=== PATIENT | male | born 1955 | race Caucasian/White ===

== ENCOUNTER 2020-03-31 09:29 | Inpatient (IN) | payer SELFPAY ==
[~2020-03-31] VITALS: Ht 177.8 cm; Wt 76.6 kg
[2020-03-31] MEDS ORDERED: DexAMETHasone SOD PHOS 10MG/1ML VIAL INJ IV ONE (11:00)
[2020-03-31] MEDS ORDERED: ALBUTEROL SULF 2.5 MG/0.5ML(0.5%) NEB SOLN HHN ONE (11:00)
[2020-03-31] MEDS ORDERED: IPRATROPIUM BROM 0.5 MG/2.5ML INH SOL HHN ONE (11:00)
[2020-03-31] MEDS ORDERED: hydrALAZINE HCL 20 MG/ML VL IV ONE (11:15)
[2020-03-31 11:25] LABS: Albumin 3.3 g/dL (3.4-5.0); Calcium 8.9 mg/dL (8.5-10.1); Potassium 4.1 mmol/L (3.5-5.1)
[2020-03-31 11:28] LABS: BUN/Creatinine Ratio 20.4; Bilirubin, Total 0.7 mg/dL (0.2-1.0)
[2020-03-31] MEDS ORDERED: NIFEdipine 10 MG CAP PO ONE ×2 (11:45→12:30)
[2020-03-31 12:27] LABS: Basophils # (auto) 0.1 10 ^3/uL (0-0.2); Basophils % (auto) 0.8 % (0.0-2.0); Eosinophils # (auto) 0.2 10 ^3/uL (0-0.8); Hematocrit 42.2 % (41.0-53.0); Hemoglobin 14.4 g/dL (13.5-17.5); Lymphocytes # (auto) 1.3 10 ^3/uL (0.4-5.4); Mean Corpuscular Hemoglobin 33.5 pg (28.0-32.0); Mean Corpuscular Hgb Conc. 34.2 g/dL (32.0-36.0); Mean Corpuscular Volume 98.1 fL (80.0-100.0); Monocytes # (auto) 0.8 10 ^3/uL (0-1.3); Monocytes % (auto) 9.9 % (0.0-12.0); Neutrophils # (auto) 5.5 10 ^3/uL (1.6-8.6); Neutrophils % (auto) 70.3 % (37.0-80.0); Platelet Count (auto) 177 10^3/uL (140-450); Red Cell Distribution Width 15.7 % (11.8-14.3); White Blood Cell 7.8 10^3/uL (4.4-10.8)
[2020-03-31] MEDS ORDERED: NITROGLYCERIN 0.4MG/HR TOPICAL PATCH TD ONE (13:15)
[2020-03-31] MEDS ORDERED: ENALAPRILAT 1.25 MG/ML-1ML VIAL IV ONE (13:15)
[2020-03-31] MEDS ORDERED: SODIUM CHLORIDE 0.9% 1,000 ML IV SCH (14:41)
[2020-03-31] MEDS ORDERED: MORPHINE SULF INJ 2 MG/ML SYRINGE 1ML IV PRN ×2 (14:45→15:00)
[2020-03-31] MEDS ORDERED: NITROGLYCERIN 0.4 MG SL TAB SL PRN (14:45)
[2020-03-31 14:50] VITALS: BP 136/84
[2020-03-31] MEDS ORDERED: LORazepam 0.5 MG TAB PO PRN (15:00)
[2020-03-31] MEDS ORDERED: ZINC SULFATE 220mg CAP or TAB PO SCH (15:59)
[2020-03-31] MEDS ORDERED: ASCORBIC ACID 1,000 MG TAB PO SCH (15:59)
[2020-03-31] MEDS ORDERED: CHOLECALCIFEROL (VITD3) 2,000 UNIT CAP PO SCH (16:00)
[2020-03-31 16:58] LABS: CRP High Sensitivity 3.37 mg/dL (< 0.3)
[2020-03-31] MEDS: ENOXAPARIN SOD 40 MG/0.4 ML SYRINGE SC SCH (17:02)
[2020-03-31] MEDS: levoFLOXacin 750MG 150 ML IV SCH (17:02)
--- NOTE | 2020-03-31 17:40 | NUR ---
Telemetry admit from ER JON ADLER admitted to Telemetry unit after SBAR received. Patient oriented to MARISELA DAIGLE RN primary RN, unit, room, bed, and unit policies regarding patient care and visiting hours. Patient awaiting tele box to be delivered. Patient placed on bedside 4L oxygen, weighed by bedscale and encouraged to call if they need something. All questions and concerns addressed, patient verbalized understanding.
[2020-03-31] MEDS ORDERED: PIPERACILLIN-TAZOB 2.25GM 50 ML IV SCH (18:00)
[2020-03-31 18:20] VITALS: BP 154/93
--- NOTE | 2020-03-31 18:20 | NUR ---
Hospitalist paged Hospitalist paged regarding patients BP 155/93 upon admission to the Tele floor. No PRN anti-hypertensives available on EMAR. Awaiting call back.
[2020-03-31] MEDS ORDERED: hydrALAZINE HCL 20 MG/ML VL IV PRN (18:45)
--- NOTE | 2020-03-31 18:45 | NUR ---
paged back. New orders received at this time for elevated B/P. Please check EMAR for more information. Will implement orders and continue care.
--- NOTE | 2020-03-31 18:47 | NUR ---
B/P reassessment Reassessed BP at this time is currently 148/90. Will hold off on giving BP medication per protocol.
[2020-03-31] MEDS: PIPERACILLIN-TAZOB 3.375GM 100 ML IV SCH ×2 (19:20→23:35)
--- NOTE | 2020-03-31 19:35 | NUR ---
OPENING NOTE Received report from day shift RN. Patient is A&O X's 4 with no s/s of distress and reports no pain or SOB at this time. Patient is currently receiving 3L O2 via [place] Respirations are even and unlabored. Patient has a cough that patient describes as mostly dry but sometimes coughs up thin excretions. Patient reports feeling better at this time. Educated patient on POC and to use call light when in need of any assistance/experiences worsening of symptoms. Patient verbalized understanding. Bed is in lowest/locked position with side rails up X's 2 and call light is within reach of patient. Will continue care. Urine sample to be obtained. patient aware.
--- NOTE | 2020-03-31 20:48 | NUR ---
in house covid swab collected and walked down to lab by resource RN.
--- NOTE | 2020-03-31 21:12 | NUR ---
Respiratory note: MDI HELD AT THIS TIME WAITING FOR COVID RESULTS, NO DISTRESS NOTED
[2020-03-31] MEDS: ACETAMINOPHEN 500 MG TAB PO PRN (21:52)
--- NOTE | 2020-03-31 21:56 | NUR ---
URINE SAMPLE OBTAINED sent to lab via [employer] system.
[2020-03-31 22:00] VITALS: BP 156/98
[2020-03-31] MEDS ORDERED: BUDESONIDE (INHALATION) 180 MCG IH IN SCH (22:00)
[2020-03-31] MEDS ORDERED: ALBUTEROL SULF HFA 90MCG INH 200DOSE IN SCH (22:00)
--- NOTE | 2020-03-31 22:00 | NUR ---
[facility] HOSPITALIST BP reassessed at 154/93 HR 85-90 PRN blood pressure medication is not available.
[2020-03-31 22:28] LABS: Urine Bacteria NONE SEEN /hpf (None Seen); Urine Blood Negative /uL (Negative); Urine WBC 2 /hpf (0 - 3)
[2020-03-31] MEDS ORDERED: LABETALOL HCL 5 MG/ML 4ML SYRINGE IV ONE (22:45)
--- NOTE | 2020-03-31 22:48 | NUR ---
HOSPITALIST CALLED BACK Medication ordered for high blood pressure. Will carry out order.
[2020-03-31 23:12] LABS: Lactic Acid w/Reflex 2.3 mmol/L (0.4-2.0)
[2020-03-31 23:42] VITALS: BP 137/91
--- NOTE | 2020-03-31 23:43 | NUR ---
BLOOD PRESSURE REASSESSMENT BP 137/91 HR 82 patient reports no pain/sob. Will continue care
[2020-04-01] VITALS (7 sets, daily range): BP systolic 147–170; BP diastolic 95–115
--- NOTE | 2020-04-01 02:12 | NUR ---
RUN OF VTACH 6 BEAT OF VTACH 6 beat of VTACH. Assessed patient. Patient asymptomatic. No s/s of distress and reports no chest pain/sob or any other complaints. Patient's HR remaining about 80's SR. EKG performed and placed in chart. Will continue care.
--- NOTE | 2020-04-01 02:40 | NUR ---
ENDORSED CARE Patient now to room 273A with URBANO Kee. Gave full report to Vidhya with all questions answered. Patient left unit via wheelchair, transported by URBANO Gann. No s/s of distress noted. Respirations even and unlabored. Patient left with all belongings.
--- NOTE | 2020-04-01 02:41 | NUR ---
RECEIVED PATIENT Received patient from URBANO Wood after SBAR given. Patient transferred via wheelchair to Room 273-A. No distress noted at time of arrival. POC discussed and patient verbalizes understanding. Bed is in low locked position with side rails up x2. Call light is within reach and patient ecouraged to call for assistance when needed. Will continue to monitor for changes PRN.
--- NOTE | 2020-04-01 02:51 | NUR ---
COPYIST Spoke with Benito ekg monitor. requested new Tele box due to transfer to [facility]. Tele box #7 sent to monitor techs via bullet system.
--- NOTE | 2020-04-01 03:04 | NUR ---
PATIENT IS NOW ON CONTINUOUS TELEMETRY MONITORING VIA TELEMETRY BOX #[id number]. CURRENTLY IN NORMAL SINUS RHYTHM AT 88.
--- NOTE | 2020-04-01 04:08 | NUR ---
BLOOD PRESSURE Blood pressure is 164/77, HR 88. Patient has an order for Apresoline 10mg PRN Q6 for SBP>150, which is currently unavailable. Hospitalist paged to notify.
--- NOTE | 2020-04-01 05:11 | NUR ---
BLOOD PRESSURE Blood pressure reassessed and is 158/95, HR 93. Received call from Hospitalist Sandoavl Blackwell NP. New orders received, read back and verified. Will follow through.
[2020-04-01] MEDS ORDERED: LABETALOL HCL 5 MG/ML 4ML SYRINGE IV ONE (05:15)
[2020-04-01] MEDS: PIPERACILLIN-TAZOB 3.375GM 100 ML IV SCH ×4 (05:41→23:50)
[2020-04-01 07:44] LABS: Basophils # (auto) 0 10 ^3/uL (0-0.2); Basophils % (auto) 0.6 % (0.0-2.0); Eosinophils # (auto) 0 10 ^3/uL (0-0.8); Eosinophils % (auto) 0.1 % (0.0-7.0); Hematocrit 41.7 % (41.0-53.0); Hemoglobin 13.5 g/dL (13.5-17.5); Lymphocytes # (auto) 0.9 10 ^3/uL (0.4-5.4); Lymphocytes % (auto) 10.8 % (10.0-50.0); Mean Corpuscular Hemoglobin 31.7 pg (28.0-32.0); Mean Corpuscular Hgb Conc. 32.5 g/dL (32.0-36.0); Mean Corpuscular Volume 97.6 fL (80.0-100.0); Monocytes # (auto) 0.8 10 ^3/uL (0-1.3); Monocytes % (auto) 9.3 % (0.0-12.0); Neutrophils # (auto) 6.4 10 ^3/uL (1.6-8.6); Neutrophils % (auto) 79.2 % (37.0-80.0); Platelet Count (auto) 168 10^3/uL (140-450); Red Blood Cells 4.27 10^6/uL (4.5-5.90); Red Cell Distribution Width 15.9 % (11.8-14.3); White Blood Cell 8.1 10^3/uL (4.4-10.8)
[2020-04-01 07:59] LABS: Calcium 8.4 mg/dL (8.5-10.1); Potassium 4.1 mmol/L (3.5-5.1)
[2020-04-01 08:06] LABS: BUN/Creatinine Ratio 23.4; Bilirubin, Total 0.7 mg/dL (0.2-1.0); Total Protein 6.6 g/dL (6.4-8.2)
--- NOTE | 2020-04-01 08:30 | NUR ---
Patient resting quietly in bed. Patient stable.
[2020-04-01] MEDS: levoFLOXacin 750MG 150 ML IV SCH (09:34)
[2020-04-01] MEDS: ENOXAPARIN SOD 40 MG/0.4 ML SYRINGE SC SCH (09:34)
--- NOTE | 2020-04-01 09:35 | NUR ---
Patient resting comfortably in bed with no distress noted. Denies any pain. Scheduled IV abx and subq medications given per order. Patient stable at this time.
[2020-04-01] MEDS ORDERED: levoFLOXacin 500MG 100 ML IV SCH (10:00)
[2020-04-01] MEDS ORDERED: FUROSEMIDE 40 MG/4 ML VIAL IV ONE (10:15)
[2020-04-01] MEDS ORDERED: ASPirin 81 mg TAB PO ONE (10:15)
[2020-04-01] MEDS ORDERED: METOPROLOL TARTRATE 25 MG TAB PO ONE (10:15)
[2020-04-01] MEDS ORDERED: NICOTINE 21MG/24 HR TOPICAL PATCH TD ONE (10:30)
[2020-04-01 10:52] LABS: Cholesterol 175 mg/dL (< 200); HDL Cholesterol 38 mg/dL (40-59); LDL Cholesterol 128 mg/dL (< 100); Triglycerides 100 mg/dL (< 150)
--- NOTE | 2020-04-01 11:00 | NUR ---
Ordered medications given. Patient stable at this time.
--- NOTE | 2020-04-01 11:05 | NUR ---
Patient stable with Dr. Celeste at bedside.
[2020-04-01] MEDS: DOCUSATE CALCIUM 240 MG CAP PO SCH (11:54)
--- NOTE | 2020-04-01 11:55 | NUR ---
Patient sitting on side of bed; denies any pain. Scheduled IV abx and po medications given per order. Patient stable at this time.
--- NOTE | 2020-04-01 14:33 | NUR ---
Patient sitting on side of bed with no respiratory distress noted. Patient stable at this time.
--- NOTE | 2020-04-01 16:40 | NUR ---
Patient resting quietly and comfortably in bed with no distress noted. Patient stable.
[2020-04-01] MEDS: FUROSEMIDE 40 MG/4 ML VIAL IV SCH (17:42)
--- NOTE | 2020-04-01 17:45 | NUR ---
Scheduled IV abx and IVP medications given per order. Patient sitting on side of bed; eating dinner. Patient stable at this time.
--- NOTE | 2020-04-01 18:29 | NUR ---
Patient sitting on side of bed with no complaint of pain or discomfort. Patient stable throughout shift.
--- NOTE | 2020-04-01 19:35 | NUR ---
Opening Shift Note Assumed care of patient, awake and alert. No S/S of distress/SOB or pain. PIV in left AC is intact and patent. Currently infusing Zosyn as ordered. Instructed on POC and to call for assist PRN, will continue to monitor for changes Q1hr and PRN.
[2020-04-01] MEDS ORDERED: METOPROLOL TARTRATE 25 MG TAB PO SCH (22:00)
[2020-04-01] MEDS: ACETAMINOPHEN 500 MG TAB PO PRN (22:45)
[2020-04-02] VITALS (7 sets, daily range): BP systolic 134–153; BP diastolic 87–98
[2020-04-02] MEDS: FUROSEMIDE 40 MG/4 ML VIAL IV SCH ×2 (05:38→19:23)
[2020-04-02] MEDS: PIPERACILLIN-TAZOB 3.375GM 100 ML IV SCH (05:38)
[2020-04-02] MEDS: NICOTINE 21MG/24 HR TOPICAL PATCH TD SCH (10:00)
[2020-04-02] MEDS ORDERED: SACUBITRIL-VALSARTAN 24mg/26mg TAB PO ONE (10:30)
--- NOTE | 2020-04-02 10:54 | NUR ---
I faxed life vest order to [facility].
[2020-04-02] MEDS: levoFLOXacin 750MG 150 ML IV SCH (11:05)
[2020-04-02] MEDS: ASPirin 81 mg TAB PO SCH (11:05)
[2020-04-02] MEDS: METOPROLOL TARTRATE 50 MG TAB PO SCH ×2 (11:06→21:55)
[2020-04-02] MEDS: DOCUSATE CALCIUM 240 MG CAP PO SCH (11:08)
[2020-04-02] MEDS: ENOXAPARIN SOD 40 MG/0.4 ML SYRINGE SC SCH (11:08)
--- NOTE | 2020-04-02 19:20 | NUR ---
Opening Shift Note Assumed care of patient, awake, alert, and oriented x 4. No S/S of respiratory distress and/or pain noted or reported. Bed in lowest locked position, side rails x 2 up, call light is within reach. Instructed on POC and to call for assistance as needed. Will continue to monitor for changes Q1hr and PRN.
[2020-04-02] MEDS: ATORVASTATIN 20 MG TAB PO SCH (21:54)
[2020-04-02] MEDS: SACUBITRIL-VALSARTAN 24mg/26mg TAB PO SCH (21:54)
[2020-04-03 05:00] VITALS: BP 128/89
[2020-04-03] MEDS: FUROSEMIDE 40 MG/4 ML VIAL IV SCH ×2 (05:36→18:15)
--- NOTE | 2020-04-03 05:38 | NUR ---
Pre OP Pre Op bath with CHG given to the patient. Tolerated well.
[2020-04-03 06:50] LABS: Basophils # (auto) 0.1 10 ^3/uL (0-0.2); Basophils % (auto) 1.3 % (0.0-2.0); Eosinophils # (auto) 0.4 10 ^3/uL (0-0.8); Eosinophils % (auto) 4.3 % (0.0-7.0); Hematocrit 52.4 % (41.0-53.0); Hemoglobin 17.6 g/dL (13.5-17.5); Lymphocytes % (auto) 22.7 % (10.0-50.0); Mean Corpuscular Hemoglobin 32.2 pg (28.0-32.0); Mean Corpuscular Hgb Conc. 33.6 g/dL (32.0-36.0); Mean Corpuscular Volume 95.8 fL (80.0-100.0); Monocytes % (auto) 11.1 % (0.0-12.0); Neutrophils # (auto) 5.3 10 ^3/uL (1.6-8.6); Neutrophils % (auto) 60.6 % (37.0-80.0); Nucleated Red Blood Cells % 0.2 %; Platelet Count (auto) 212 10^3/uL (140-450); Red Blood Cells 5.48 10^6/uL (4.5-5.90); Red Cell Distribution Width 15.2 % (11.8-14.3); White Blood Cell 8.8 10^3/uL (4.4-10.8)
[2020-04-03 07:07] LABS: Calcium 9.1 mg/dL (8.5-10.1); Potassium 3.7 mmol/L (3.5-5.1)
[2020-04-03 07:17] LABS: INR 1.04 (0.9-1.15); Partial Thromboplastin Time 28.8 sec (23.0-31.2)
[2020-04-03] MEDS: SACUBITRIL-VALSARTAN 24mg/26mg TAB PO SCH ×2 (08:10→22:09)
[2020-04-03] MEDS: ASPirin 81 mg TAB PO SCH (08:10)
[2020-04-03] MEDS: levoFLOXacin 750MG 150 ML IV SCH (08:10)
[2020-04-03] MEDS: DOCUSATE CALCIUM 240 MG CAP PO SCH (08:11)
[2020-04-03] MEDS: METOPROLOL TARTRATE 50 MG TAB PO SCH ×2 (08:11→22:10)
[2020-04-03 08:48] VITALS: BP 141/95
[2020-04-03] MEDS: ENOXAPARIN SOD 40 MG/0.4 ML SYRINGE SC SCH (10:00)
[2020-04-03] MEDS ORDERED: ANGIOMAX 250 MG VIAL IV ONE (10:21)
[2020-04-03] MEDS ORDERED: fentaNYL CITRATE 100 MCG/2 ML VL ONE (10:21)
[2020-04-03] MEDS ORDERED: VERAPAMIL 2.5MG/ML INJ 2ML VIAL IV ONE (10:21)
[2020-04-03] MEDS ORDERED: HEPARIN SODIUM (PORCINE) 5000 UNITS/ML 1ML VIAL ONE (10:21)
[2020-04-03] MEDS ORDERED: LIDOCAINE 2%HCL (LOCAL ANESTH.) INJ 20ML MDV ONE (10:22)
[2020-04-03] MEDS ORDERED: MIDAZOLAM HCL 1MG/1ML-2 ML VIAL ONE (10:22)
[2020-04-03] MEDS ORDERED: IODIXANOL 320MG/ML 100ML BTL IV ONE (10:22)
[2020-04-03] MEDS ORDERED: SODIUM CHL 0.9% 0 ML ONE (10:22)
[2020-04-03] MEDS: NICOTINE 21MG/24 HR TOPICAL PATCH TD SCH (11:00)
--- NOTE | 2020-04-03 12:43 | NUR ---
Nutrition Assessment Notes Please refer to link for full assessment notes. Est Energy needs: 7151-1106 kcals (23-25 kcal/kgBW) Est Protein needs: 64-79 gms/day (0.8-1.0 gm/kgBW) Will continue to monitor and reassess prn. Addendum: 04/03/20 at [address] Amended: Links added.
--- NOTE | 2020-04-03 14:32 | NUR ---
assessment Patient is a 64 year old male who is alert and oriented. Patients cognitive abilities are intact. Prior to admission patient lived home alone and functioned independently. Patient informed me he is able to care for his own ADLs. Per patient he will return home to his prior living arrangements post discharge and family will transport him home. Patient informed me he has a cane for home use. Patient has no PCP. Patient feels safe returning home on discharge. Patient has no insurance. Patient has been assessed by Suresh Johnson of [facility]. Patient is over income. Patients monthly income is 2,800. I have provided patient with resources for [facility], Dr. Alcala, and [facility] urgent care for follow up visits. I have provided patient with a prescription card from community assistance program. I informed patient I will continue to monitor and follow up as appropriate for any post discharge needs. I informed patient he has a right to speak to a marriage and family social worker regarding all care. I informed patient he has a right to participate in any and all discharge planning. Patient does not have a POA and advanced directive. I have offered patient information on POA and advanced directives. I informed the patient the advantages and benefits of having an Advanced Directive. Patient verbalized understanding and agreed to discharge plan. Addendum: 04/03/20 at 1435 by Brittney FERREIRA Amended: Links added.
[2020-04-03 17:13] VITALS: BP 121/70
--- NOTE | 2020-04-03 19:13 | NUR ---
Opening Shift Note Assumed care of patient, awake, alert, and oriented x 4. No S/S of respiratory distress and/or pain noted or reported. Respirations are regular and non-labored. Patient is on RA. Bed in lowest locked position, side rails x 2 up, call light is within reach. Instructed on POC and to call for assistance as needed. Will continue to monitor for changes Q1hr and PRN.
[2020-04-03 20:00] VITALS: BP 119/83
[2020-04-03 22:00] VITALS: BP 119/83
[2020-04-03] MEDS: ATORVASTATIN 20 MG TAB PO SCH (22:10)
[2020-04-04 05:00] VITALS: BP 151/99
[2020-04-04 05:50] LABS: Basophils # (auto) 0.1 10 ^3/uL (0-0.2); Basophils % (auto) 1.2 % (0.0-2.0); Eosinophils # (auto) 0.3 10 ^3/uL (0-0.8); Lymphocytes # (auto) 1.6 10 ^3/uL (0.4-5.4); Mean Corpuscular Volume 95.3 fL (80.0-100.0); Monocytes # (auto) 1.2 10 ^3/uL (0-1.3); Neutrophils # (auto) 6.1 10 ^3/uL (1.6-8.6); Red Cell Distribution Width 15.5 % (11.8-14.3)
[2020-04-04 05:52] LABS: Eosinophils % (auto) 3.3 % (0.0-7.0); Hematocrit 53.6 % (41.0-53.0); Hemoglobin 18.3 g/dL (13.5-17.5); Lymphocytes % (auto) 17.4 % (10.0-50.0); Mean Corpuscular Hemoglobin 32.5 pg (28.0-32.0); Mean Corpuscular Hgb Conc. 34.1 g/dL (32.0-36.0); Monocytes % (auto) 12.6 % (0.0-12.0); Neutrophils % (auto) 65.5 % (37.0-80.0); Nucleated Red Blood Cells % 0.7 %; Platelet Count (auto) 203 10^3/uL (140-450); Red Blood Cells 5.62 10^6/uL (4.5-5.90); White Blood Cell 9.3 10^3/uL (4.4-10.8)
[2020-04-04 06:07] LABS: Albumin 3.2 g/dL (3.4-5.0); Calcium 9.3 mg/dL (8.5-10.1); Potassium 4.2 mmol/L (3.5-5.1)
[2020-04-04 06:10] LABS: BUN/Creatinine Ratio 26.5; Bilirubin, Total 0.6 mg/dL (0.2-1.0); Total Protein 7.3 g/dL (6.4-8.2)
[2020-04-04] MEDS: FUROSEMIDE 40 MG/4 ML VIAL IV SCH (06:29)
--- NOTE | 2020-04-04 07:40 | NUR ---
Opening Shift Note Assumed care of patient from noc shift rn, awake, alert, and oriented x 4. No S/S of respiratory distress and/or pain noted at this time. Respirations are regular and non-labored. Patient is on RA. Bed in lowest locked position, side rails x 2 up, call light is within reach. Instructed on POC and to call for assistance as needed. Will continue to monitor for changes Q1hr and PRN.
[2020-04-04 08:00] VITALS: BP 129/82
[2020-04-04 08:26] VITALS: BP 129/82
[2020-04-04] MEDS: ENOXAPARIN SOD 40 MG/0.4 ML SYRINGE SC SCH (09:58)
[2020-04-04] MEDS: levoFLOXacin 750MG 150 ML IV SCH (09:58)
[2020-04-04] MEDS: SACUBITRIL-VALSARTAN 24mg/26mg TAB PO SCH (09:59)
[2020-04-04] MEDS: ACETAMINOPHEN 500 MG TAB PO PRN (09:59)
[2020-04-04] MEDS: ASPirin 81 mg TAB PO SCH (09:59)
[2020-04-04] MEDS: DOCUSATE CALCIUM 240 MG CAP PO SCH (10:00)
[2020-04-04] MEDS: METOPROLOL TARTRATE 50 MG TAB PO SCH (10:00)
[2020-04-04] MEDS: NICOTINE 21MG/24 HR TOPICAL PATCH TD SCH (10:00)
[2020-04-04 12:46] VITALS: BP 114/86
[2020-04-04 14:40] VITALS: BP 129/82
--- NOTE | 2020-04-04 16:15 | NUR ---
PATIENT DISCHARGED PER MD'S ORDER, ALERT AND ORIENTED X4. DISCHARGE SUMMARY AND FOLLOW UP INSTRUCTIONS PROVIDED. PATIENT DISCHARGED WITH ALL PERSONAL BELONGINGS AND ZOLL VEST EQUIPMENT. PATIENT IS AMBULATORY, IV DISCONTINUED AND TELE MONITOR RETURNED TO ICU.
== END 2020-04-04 16:15 | disposition home or self-care (01) | DRG 280 ==
LOC: ER 09:29 → TELE 09:30 → TELE-EAST 17:40 → TELE-WESTW 04-01 02:40
PROVIDERS: ATTEND Family Medicine
PROC: 4A023N7 Measurement of Cardiac Sampling and Pressure, Left Heart, Percutaneous Approach (ICD-10-PCS; principal; 2020-04-03)
PROC: B2111ZZ Fluoroscopy of Multiple Coronary Arteries using Low Osmolar Contrast (ICD-10-PCS; 2020-04-03)
PROC: B2151ZZ Fluoroscopy of Left Heart using Low Osmolar Contrast (ICD-10-PCS; 2020-04-03)
DX: I21.A1 Myocardial infarction type 2 (principal); I50.23 Acute on chronic systolic (congestive) heart failure; E46 Unspecified protein-calorie malnutrition; I42.9 Cardiomyopathy, unspecified; J44.1 Chronic obstructive pulmonary disease with (acute) exacerbation; J44.0 Chronic obstructive pulmonary disease with (acute) lower respiratory infection; I11.0 Hypertensive heart disease with heart failure; I16.0 Hypertensive urgency; I25.10 Atherosclerotic heart disease of native coronary artery without angina pectoris; Z20.828 Contact with and (suspected) exposure to other viral communicable diseases; F17.200 Nicotine dependence, unspecified, uncomplicated; J20.9 Acute bronchitis, unspecified; E78.5 Hyperlipidemia, unspecified; Z68.24 Body mass index [BMI] 24.0-24.9, adult; Z71.6 Tobacco abuse counseling; Z91.19 Patient's noncompliance with other medical treatment and regimen
CPT/HCPCS: 36415; 36600; 71045; 80048; 80053; 80061; 81001; 82728; 82805; 83605; 83615; 83735; 83880; 84443; 84484; 85025; 85379; 85610; 85730; 86141; 87426; 93306; 93970; 94640; 99152; G0378; J1100; J1956; J2250; J2543; J3490; Q9967

== ENCOUNTER 2020-07-14 08:14 | Inpatient (IN) | payer SELFPAY ==
[~2020-07-14] VITALS: Ht 177.8 cm; Wt 81.6 kg
[2020-07-14 09:58] LABS: Basophils # (auto) 0.1 10 ^3/uL (0-0.2); Basophils % (auto) 1.1 % (0.0-2.0); Eosinophils # (auto) 0.1 10 ^3/uL (0-0.8); Eosinophils % (auto) 1.2 % (0.0-7.0); Hematocrit 42.2 % (41.0-53.0); Hemoglobin 14.1 g/dL (13.5-17.5); Lymphocytes # (auto) 1.8 10 ^3/uL (0.4-5.4); Lymphocytes % (auto) 20.3 % (10.0-50.0); Mean Corpuscular Hemoglobin 32.3 pg (28.0-32.0); Mean Corpuscular Hgb Conc. 33.4 g/dL (32.0-36.0); Mean Corpuscular Volume 96.5 fL (80.0-100.0); Monocytes # (auto) 0.8 10 ^3/uL (0-1.3); Monocytes % (auto) 9.2 % (0.0-12.0); Neutrophils # (auto) 5.9 10 ^3/uL (1.6-8.6); Neutrophils % (auto) 68.2 % (37.0-80.0); Nucleated Red Blood Cells % 0.1 %; Platelet Count (auto) 185 10^3/uL (140-450); Red Blood Cells 4.38 10^6/uL (4.5-5.90); Red Cell Distribution Width 15.8 % (11.8-14.3); White Blood Cell 8.7 10^3/uL (4.4-10.8)
[2020-07-14 10:11] LABS: Albumin 3.4 g/dL (3.4-5.0); Calcium 8.6 mg/dL (8.5-10.1); Magnesium 2.5 mg/dL (1.6-2.6); Potassium 4.1 mmol/L (3.5-5.1)
[2020-07-14 10:18] LABS: BUN/Creatinine Ratio 17.4; Bilirubin, Total 0.8 mg/dL (0.2-1.0); Total Protein 7.6 g/dL (6.4-8.2)
[2020-07-14 10:19] LABS: Urine Bacteria NONE SEEN /hpf (None Seen); Urine Blood Negative /uL (Negative); Urine Specific Gravity 1.024 (1.001-1.035); Urine WBC 1 /hpf (0 - 3)
[2020-07-14] MEDS ORDERED: FUROSEMIDE 20 MG TAB PO ONE (14:15)
[2020-07-14] MEDS ORDERED: ONDANSETRON HCL 4 MG/2 ML VIAL IV PRN (14:15)
[2020-07-14] MEDS ORDERED: HYDROcodone-ACET 5/325MG TAB PO PRN (14:15)
[2020-07-14] MEDS ORDERED: NITROGLYCERIN 0.4 MG SL TAB SL PRN (14:15)
[2020-07-14] MEDS ORDERED: MORPHINE SULFATE 4 MG/ML SYR/VIAL IV PRN (14:15)
[2020-07-14] MEDS ORDERED: ACETAMINOPHEN 325 MG TAB PO PRN (14:15)
[2020-07-14] MEDS: ATORVASTATIN 20 MG TAB PO SCH (22:59)
[2020-07-14] MEDS: METOPROLOL TARTRATE 25 MG TAB PO SCH (22:59)
[2020-07-15 06:31] LABS: BUN/Creatinine Ratio 19.3; Calcium 8.5 mg/dL (8.5-10.1)
[2020-07-15] MEDS: THIAMINE HCL 100 MG TAB PO SCH (10:00)
[2020-07-15] MEDS ORDERED: LISINOPRIL 5 MG TAB PO SCH (10:00)
[2020-07-15] MEDS: FOLIC ACID 1 MG TAB PO SCH (10:00)
[2020-07-15] MEDS: FUROSEMIDE 20 MG TAB PO SCH (10:00)
[2020-07-15] MEDS: METOPROLOL TARTRATE 25 MG TAB PO SCH ×2 (10:00→21:20)
[2020-07-15] MEDS: ASPirin 81 mg TAB PO SCH (10:00)
[2020-07-15] MEDS ORDERED: ASPI81CH43 GT (20:46)
[2020-07-15] MEDS ORDERED: IBUP200C3 PO (20:46)
[2020-07-15 20:47] VITALS: BP 135/97
[2020-07-15] MEDS: ATORVASTATIN 20 MG TAB PO SCH (21:20)
[2020-07-16 05:11] VITALS: BP 104/77
[2020-07-16 08:55] VITALS: BP 141/76
[2020-07-16] MEDS: ASPirin 81 mg TAB PO SCH (09:40)
[2020-07-16] MEDS: METOPROLOL TARTRATE 25 MG TAB PO SCH ×2 (09:41→22:21)
[2020-07-16] MEDS: FOLIC ACID 1 MG TAB PO SCH (09:41)
[2020-07-16] MEDS: THIAMINE HCL 100 MG TAB PO SCH (09:41)
[2020-07-16] MEDS: FUROSEMIDE 20 MG TAB PO SCH (09:41)
[2020-07-16] MEDS ORDERED: SACUBITRIL-VALSARTAN 24mg/26mg TAB PO SCH (10:00)
[2020-07-16] MEDS ORDERED: FUROSEMIDE 20 MG TAB PO SCH (10:45)
[2020-07-16 13:00] VITALS: BP 127/54
[2020-07-16 17:00] VITALS: BP 130/83
[2020-07-16] MEDS: FUROSEMIDE 40 MG/4 ML VIAL IV SCH (17:44)
[2020-07-16 19:30] VITALS: BP 127/81
[2020-07-16 22:00] VITALS: BP 127/81
[2020-07-16] MEDS: CARVEDILOL 3.125 MG TAB PO SCH (22:20)
[2020-07-16] MEDS: ATORVASTATIN 20 MG TAB PO SCH (22:20)
[2020-07-17] MEDS: FUROSEMIDE 40 MG/4 ML VIAL IV SCH (06:48)
[2020-07-17 07:45] LABS: BUN/Creatinine Ratio 20.6; Calcium 8.4 mg/dL (8.5-10.1); Potassium 4.3 mmol/L (3.5-5.1)
[2020-07-17 09:00] VITALS: BP 115/74
[2020-07-17] MEDS: ASPirin 81 mg TAB PO SCH (09:11)
[2020-07-17] MEDS: THIAMINE HCL 100 MG TAB PO SCH (09:12)
[2020-07-17] MEDS: FOLIC ACID 1 MG TAB PO SCH (09:13)
[2020-07-17] MEDS: CARVEDILOL 3.125 MG TAB PO SCH (09:13)
[2020-07-17] MEDS: METOPROLOL TARTRATE 25 MG TAB PO SCH (09:13)
[2020-07-17] MEDS ORDERED: POTASSIUM CHL 10 Meq TABLET PO SCH (10:00)
[2020-07-17 12:07] VITALS: BP 115/74
[2020-07-17 13:00] VITALS: BP 110/80
== END 2020-07-17 13:40 | disposition home or self-care (01) | DRG 291 ==
LOC: ER 08:14 → OVERFLOW 08:15 → TELE-CENTR 07-15 20:05
PROVIDERS: ADMIT Nurse Practitioner Acute Care; ATTEND Internal Medicine
DX: I13.0 Hypertensive heart and chronic kidney disease with heart failure and stage 1 through stage 4 chronic kidney disease, or unspecified chronic kidney disease (principal); I50.23 Acute on chronic systolic (congestive) heart failure; J44.1 Chronic obstructive pulmonary disease with (acute) exacerbation; E46 Unspecified protein-calorie malnutrition; R79.89 Other specified abnormal findings of blood chemistry; I42.0 Dilated cardiomyopathy; Z20.828 Contact with and (suspected) exposure to other viral communicable diseases; F10.10 Alcohol abuse, uncomplicated; N18.30 Chronic kidney disease, stage 3 unspecified; Z79.82 Long term (current) use of aspirin; Z79.899 Other long term (current) drug therapy; Z87.891 Personal history of nicotine dependence; Z91.14 Patient's other noncompliance with medication regimen; Z91.19 Patient's noncompliance with other medical treatment and regimen; Z68.25 Body mass index [BMI] 25.0-25.9, adult; Y90.9 Presence of alcohol in blood, level not specified
CPT/HCPCS: 36415; 71045; 80048; 80053; 80061; 81001; 83735; 83880; 84484; 85025; 87426; 87804; G0378

== ENCOUNTER 2020-10-01 07:09 | Inpatient (IN) | payer SELFPAY ==
[~2020-10-01] VITALS: Ht 177.8 cm; Wt 86.4 kg
[~2020-10-01 07:09] MED LIST: ASPI81CH43 GT; IBUP200C3 PO
[2020-10-01] MEDS ORDERED: cloNIDine HCL 0.1 MG TAB PO ONE ×2 (07:15)
[2020-10-01] MEDS ORDERED: cloNIDine HCL 0.1 MG TAB ONE (07:16)
[2020-10-01 07:50] LABS: Basophils # (auto) 0.1 10 ^3/uL (0-0.2); Basophils % (auto) 1.3 % (0.0-2.0); Eosinophils # (auto) 0.2 10 ^3/uL (0-0.8); Eosinophils % (auto) 1.8 % (0.0-7.0); Hematocrit 44.4 % (41.0-53.0); Hemoglobin 15.2 g/dL (13.5-17.5); Lymphocytes # (auto) 2.2 10 ^3/uL (0.4-5.4); Lymphocytes % (auto) 22.5 % (10.0-50.0); Mean Corpuscular Hemoglobin 32.9 pg (28.0-32.0); Mean Corpuscular Hgb Conc. 34.2 g/dL (32.0-36.0); Mean Corpuscular Volume 96.4 fL (80.0-100.0); Monocytes # (auto) 0.8 10 ^3/uL (0-1.3); Neutrophils # (auto) 6.4 10 ^3/uL (1.6-8.6); Neutrophils % (auto) 66.4 % (37.0-80.0); Nucleated Red Blood Cells % 0.2 %; Red Blood Cells 4.61 10^6/uL (4.5-5.90); Red Cell Distribution Width 17.4 % (11.8-14.3); White Blood Cell 9.6 10^3/uL (4.4-10.8)
[2020-10-01 08:08] LABS: Albumin 3.2 g/dL (3.4-5.0); Calcium 8.8 mg/dL (8.5-10.1); Potassium 4.3 mmol/L (3.5-5.1)
[2020-10-01 08:11] LABS: BUN/Creatinine Ratio 23.8
[2020-10-01] MEDS ORDERED: FUROSEMIDE 40 MG/4 ML VIAL IV ONE (09:15)
[2020-10-01] MEDS ORDERED: ASPirin 81 mg TAB PO ONE (10:30)
[2020-10-01] MEDS ORDERED: HEPARIN SODIUM (PORCINE) 5000 UNITS/ML 1ML VIAL IV ONE (10:30)
[2020-10-01] MEDS ORDERED: MORPHINE SULFATE INJECTION 2 MG/ML SYRG IV PRN (11:15)
[2020-10-01] MEDS ORDERED: NITROGLYCERIN 0.4 MG SL TAB SL PRN (11:15)
[2020-10-01 11:44] LABS: Urine Bacteria NONE SEEN /hpf (None Seen); Urine Blood Negative /uL (Negative); Urine Hyaline Cast FEW /lpf (0 - 2); Urine Mucus FEW (None Seen); Urine Specific Gravity 1.027 (1.001-1.035); Urine WBC 1 /hpf (0 - 3)
[2020-10-01] MEDS ORDERED: LACTULOSE 20Gm/30ML SOLN PO PRN (12:00)
[2020-10-01] MEDS ORDERED: NICOTINE 14 MG/24HR TOPICAL PATCH TD ONE (12:45)
[2020-10-01 12:53] LABS: Amphetamine Screen, Urine NEGATIVE (NEGATIVE); Barbiturate Scree,Urine NEGATIVE (NEGATIVE); Benzodiazephine Screen, Urine NEGATIVE (NEGATIVE); Cannabinoid Screen, Urine NEGATIVE (NEGATIVE); Cocaine Screen, Urine NEGATIVE (NEGATIVE); Opiate Scree,Urine NEGATIVE (NEGATIVE); Phencyclidine Screen, Urine NEGATIVE (NEGATIVE)
[2020-10-01] MEDS: SODIUM CHLOR 0.9% PF (SALINE LOCK) 10ML VIAL/SYR IV SCH ×2 (14:16→22:28)
[2020-10-01] MEDS ORDERED: CARVEDILOL 3.125 MG TAB PO SCH (22:00)
[2020-10-01] MEDS: CARVEDILOL 12.5 MG TAB PO SCH (22:28)
[2020-10-01] MEDS: ENOXAPARIN SOD 80 MG/0.8ML SYRINGE SC SCH (22:29)
[2020-10-01] MEDS: ATORVASTATIN 20 MG TAB PO SCH (22:29)
[2020-10-01] MEDS ORDERED: LORazepam 2MG/ML-1ML VIAL IV PRN (23:00)
[2020-10-02] MEDS: SODIUM CHLOR 0.9% PF (SALINE LOCK) 10ML VIAL/SYR IV SCH ×3 (06:08→22:02)
[2020-10-02 07:03] LABS: Albumin 2.7 g/dL (3.4-5.0)
[2020-10-02 07:11] LABS: Bilirubin, Total 0.9 mg/dL (0.2-1.0); Calcium 8.5 mg/dL (8.5-10.1)
[2020-10-02] MEDS: NICOTINE 14 MG/24HR TOPICAL PATCH TD SCH (10:00)
[2020-10-02] MEDS: POTASSIUM CHL 20 Meq TABLET PO SCH (10:18)
[2020-10-02] MEDS: FUROSEMIDE 40 MG/4 ML VIAL IV SCH (10:18)
[2020-10-02] MEDS: CARVEDILOL 12.5 MG TAB PO SCH ×2 (10:18→22:03)
[2020-10-02] MEDS: ASPirin 81 mg TAB PO SCH (10:18)
[2020-10-02] MEDS: ENALAPRIL MALEATE 2.5 MG TAB PO SCH (10:19)
[2020-10-02] MEDS: NITROGLYCERIN 0.2MG/HR TOPICAL PATCH TD SCH (10:19)
[2020-10-02] MEDS: ENOXAPARIN SOD 80 MG/0.8ML SYRINGE SC SCH ×2 (10:25→22:01)
[2020-10-02 17:00] VITALS: BP 110/84
[2020-10-02 17:34] VITALS: BP 110/84
[2020-10-02] MEDS: Ensure HIGH Protein Chocolate 8oz Bottle PO SCH (18:00)
[2020-10-02] MEDS: chlordiazePOXIDE HCL 25 MG CAP PO SCH ×2 (18:30→23:37)
[2020-10-02 22:00] VITALS: BP 107/72
[2020-10-02] MEDS: ATORVASTATIN 20 MG TAB PO SCH (22:02)
[2020-10-03 05:00] VITALS: BP 106/79
[2020-10-03 05:12] LABS: Basophils # (auto) 0.1 10 ^3/uL (0-0.2); Basophils % (auto) 1.4 % (0.0-2.0); Eosinophils # (auto) 0.2 10 ^3/uL (0-0.8); Eosinophils % (auto) 2.8 % (0.0-7.0); Hematocrit 42.1 % (41.0-53.0); Hemoglobin 14.3 g/dL (13.5-17.5); Lymphocytes # (auto) 2.2 10 ^3/uL (0.4-5.4); Mean Corpuscular Hemoglobin 32.6 pg (28.0-32.0); Mean Corpuscular Hgb Conc. 33.8 g/dL (32.0-36.0); Mean Corpuscular Volume 96.5 fL (80.0-100.0); Monocytes # (auto) 0.6 10 ^3/uL (0-1.3); Monocytes % (auto) 8.3 % (0.0-12.0); Neutrophils # (auto) 4.5 10 ^3/uL (1.6-8.6); Neutrophils % (auto) 58.5 % (37.0-80.0); Nucleated Red Blood Cells % 0.2 %; Red Blood Cells 4.37 10^6/uL (4.5-5.90); Red Cell Distribution Width 17.4 % (11.8-14.3); White Blood Cell 7.6 10^3/uL (4.4-10.8)
[2020-10-03 05:32] LABS: Calcium 8.2 mg/dL (8.5-10.1); Potassium 4.1 mmol/L (3.5-5.1)
[2020-10-03 05:36] LABS: Bilirubin, Total 0.9 mg/dL (0.2-1.0); Total Protein 6.5 g/dL (6.4-8.2)
[2020-10-03] MEDS: SODIUM CHLOR 0.9% PF (SALINE LOCK) 10ML VIAL/SYR IV SCH ×3 (06:02→22:00)
[2020-10-03] MEDS: chlordiazePOXIDE HCL 25 MG CAP PO SCH ×4 (06:02→22:53)
[2020-10-03 08:00] VITALS: BP 90/60
[2020-10-03] MEDS: Ensure HIGH Protein Chocolate 8oz Bottle PO SCH ×3 (08:19→18:13)
[2020-10-03 09:00] VITALS: BP 90/60
[2020-10-03] MEDS: NICOTINE 14 MG/24HR TOPICAL PATCH TD SCH (10:00)
[2020-10-03] MEDS: FUROSEMIDE 40 MG/4 ML VIAL IV SCH (10:03)
[2020-10-03] MEDS: ASPirin 81 mg TAB PO SCH (10:04)
[2020-10-03] MEDS: POTASSIUM CHL 20 Meq TABLET PO SCH (10:04)
[2020-10-03] MEDS: CARVEDILOL 12.5 MG TAB PO SCH ×2 (10:04→22:53)
[2020-10-03] MEDS: ENALAPRIL MALEATE 2.5 MG TAB PO SCH (10:05)
[2020-10-03] MEDS: ENOXAPARIN SOD 80 MG/0.8ML SYRINGE SC SCH ×2 (10:05→22:53)
[2020-10-03] MEDS: NITROGLYCERIN 0.2MG/HR TOPICAL PATCH TD SCH (10:10)
[2020-10-03 13:00] VITALS: BP 102/62
[2020-10-03 16:50] VITALS: BP 94/67
[2020-10-03 22:00] VITALS: BP 93/53
[2020-10-03] MEDS: ATORVASTATIN 20 MG TAB PO SCH (22:53)
[2020-10-04 05:00] VITALS: BP 120/71
[2020-10-04] MEDS: chlordiazePOXIDE HCL 25 MG CAP PO SCH ×3 (06:23→17:36)
[2020-10-04] MEDS: SODIUM CHLOR 0.9% PF (SALINE LOCK) 10ML VIAL/SYR IV SCH ×3 (06:23→22:16)
[2020-10-04 07:39] LABS: Basophils # (auto) 0.1 10 ^3/uL (0-0.2); Basophils % (auto) 0.8 % (0.0-2.0); Eosinophils # (auto) 0.3 10 ^3/uL (0-0.8); Hematocrit 42.2 % (41.0-53.0); Hemoglobin 14.1 g/dL (13.5-17.5); Lymphocytes # (auto) 1.8 10 ^3/uL (0.4-5.4); Lymphocytes % (auto) 21.3 % (10.0-50.0); Mean Corpuscular Hemoglobin 32.1 pg (28.0-32.0); Mean Corpuscular Hgb Conc. 33.4 g/dL (32.0-36.0); Mean Corpuscular Volume 96.2 fL (80.0-100.0); Monocytes # (auto) 0.8 10 ^3/uL (0-1.3); Monocytes % (auto) 9.4 % (0.0-12.0); Neutrophils # (auto) 5.5 10 ^3/uL (1.6-8.6); Neutrophils % (auto) 65.5 % (37.0-80.0); Red Blood Cells 4.38 10^6/uL (4.5-5.90); Red Cell Distribution Width 16.8 % (11.8-14.3); White Blood Cell 8.4 10^3/uL (4.4-10.8)
[2020-10-04 07:59] LABS: Potassium 4.1 mmol/L (3.5-5.1)
[2020-10-04 08:00] VITALS: BP 125/96
[2020-10-04 08:01] LABS: BUN/Creatinine Ratio 34.9
[2020-10-04] MEDS: Ensure HIGH Protein Chocolate 8oz Bottle PO SCH ×3 (08:28→17:36)
[2020-10-04 09:00] VITALS: BP 125/96
[2020-10-04] MEDS: NICOTINE 14 MG/24HR TOPICAL PATCH TD SCH (10:00)
[2020-10-04] MEDS: POTASSIUM CHL 20 Meq TABLET PO SCH (10:02)
[2020-10-04] MEDS: ASPirin 81 mg TAB PO SCH (10:02)
[2020-10-04] MEDS: FUROSEMIDE 40 MG/4 ML VIAL IV SCH (10:02)
[2020-10-04] MEDS: CARVEDILOL 12.5 MG TAB PO SCH ×2 (10:03→22:17)
[2020-10-04] MEDS: ENOXAPARIN SOD 80 MG/0.8ML SYRINGE SC SCH ×2 (10:03→22:16)
[2020-10-04] MEDS: ENALAPRIL MALEATE 2.5 MG TAB PO SCH (10:03)
[2020-10-04] MEDS: NITROGLYCERIN 0.2MG/HR TOPICAL PATCH TD SCH (10:05)
[2020-10-04 13:00] VITALS: BP 98/74
[2020-10-04 17:00] VITALS: BP 108/81
[2020-10-04 22:00] VITALS: BP 108/75
[2020-10-04] MEDS: ATORVASTATIN 20 MG TAB PO SCH (22:17)
[2020-10-05] VITALS (9 sets, daily range): BP systolic 82–127; BP diastolic 53–74
[2020-10-05] MEDS ORDERED: ACETAMINOPHEN 325 MG TAB PO PRN (05:15)
[2020-10-05] MEDS: chlordiazePOXIDE HCL 25 MG CAP PO SCH ×3 (05:45→12:25)
[2020-10-05] MEDS: SODIUM CHLOR 0.9% PF (SALINE LOCK) 10ML VIAL/SYR IV SCH ×2 (05:45→10:56)
[2020-10-05 06:51] LABS: Basophils # (auto) 0.1 10 ^3/uL (0-0.2); Eosinophils # (auto) 0.2 10 ^3/uL (0-0.8); Eosinophils % (auto) 2.9 % (0.0-7.0); Hematocrit 41.8 % (41.0-53.0); Hemoglobin 14.4 g/dL (13.5-17.5); Lymphocytes # (auto) 1.7 10 ^3/uL (0.4-5.4); Lymphocytes % (auto) 20.2 % (10.0-50.0); Mean Corpuscular Hemoglobin 32.6 pg (28.0-32.0); Mean Corpuscular Hgb Conc. 34.4 g/dL (32.0-36.0); Mean Corpuscular Volume 94.8 fL (80.0-100.0); Monocytes # (auto) 0.8 10 ^3/uL (0-1.3); Monocytes % (auto) 9.8 % (0.0-12.0); Neutrophils # (auto) 5.7 10 ^3/uL (1.6-8.6); Neutrophils % (auto) 66.1 % (37.0-80.0); Red Blood Cells 4.41 10^6/uL (4.5-5.90); Red Cell Distribution Width 16.8 % (11.8-14.3); White Blood Cell 8.6 10^3/uL (4.4-10.8)
[2020-10-05 07:16] LABS: Potassium 4.2 mmol/L (3.5-5.1)
[2020-10-05 07:28] LABS: BUN/Creatinine Ratio 27.6; Bilirubin, Total 0.8 mg/dL (0.2-1.0); Calcium 8.6 mg/dL (8.5-10.1); Total Protein 6.5 g/dL (6.4-8.2)
[2020-10-05] MEDS: Ensure HIGH Protein Chocolate 8oz Bottle PO SCH ×2 (08:07→12:25)
[2020-10-05] MEDS: ASPirin 81 mg TAB PO SCH (09:58)
[2020-10-05] MEDS: POTASSIUM CHL 20 Meq TABLET PO SCH (09:58)
[2020-10-05] MEDS: NICOTINE 14 MG/24HR TOPICAL PATCH TD SCH (10:00)
[2020-10-05] MEDS ORDERED: CARVEDILOL 3.125 MG TAB PO SCH (10:00)
[2020-10-05] MEDS: ENOXAPARIN SOD 80 MG/0.8ML SYRINGE SC SCH (10:02)
[2020-10-05] MEDS: NITROGLYCERIN 0.2MG/HR TOPICAL PATCH TD SCH (10:55)
[2020-10-05] MEDS: FUROSEMIDE 40 MG/4 ML VIAL IV SCH (10:56)
[2020-10-05] MEDS: ENALAPRIL MALEATE 2.5 MG TAB PO SCH (10:56)
== END 2020-10-05 17:20 | disposition home or self-care (01) | DRG 281 ==
LOC: ER 07:09 → TELE 07:10 → TELE-WESTW 10-02 16:21
PROVIDERS: ADMIT Internal Medicine; ATTEND Internal Medicine
DX: I11.0 Hypertensive heart disease with heart failure (principal); I21.A1 Myocardial infarction type 2; E44.0 Moderate protein-calorie malnutrition; R65.10 Systemic inflammatory response syndrome (SIRS) of non-infectious origin without acute organ dysfunction; F10.239 Alcohol dependence with withdrawal, unspecified; Z68.26 Body mass index [BMI] 26.0-26.9, adult; I50.43 Acute on chronic combined systolic (congestive) and diastolic (congestive) heart failure; Z20.822 Contact with and (suspected) exposure to COVID-19; E78.5 Hyperlipidemia, unspecified; F17.210 Nicotine dependence, cigarettes, uncomplicated; H40.9 Unspecified glaucoma; K74.60 Unspecified cirrhosis of liver; I42.0 Dilated cardiomyopathy; I27.21 Secondary pulmonary arterial hypertension; I25.10 Atherosclerotic heart disease of native coronary artery without angina pectoris; Z79.899 Other long term (current) drug therapy; Z82.49 Family history of ischemic heart disease and other diseases of the circulatory system; Z91.14 Patient's other noncompliance with medication regimen
CPT/HCPCS: 36415; 71045; 80048; 80053; 80061; 80307; 81001; 83880; 84443; 84484; 85025; 87081; 87426; 93005; 96374; 96375; G0378